=== PATIENT | male | born 1950 | race Hispanic/Latino ===

== ENCOUNTER 2022-01-15 07:06 | Outpatient (CLI) | payer MEDICARE ==
[2022-01-15 08:15] LABS: Hemoglobin 12.7 g/dL (13.5-17.5); Mean Corpuscular Hemoglobin 31.9 pg (27.0-33.0); Mean Corpuscular Volume 93.7 fl (81.2-95.1); Mean Platelet Volume 10.2 fl (7.4-10.4); Platelet Count 166 10x3/uL (150-450); RBC Distribution Width 13.6 % (11.5-14.5); Red Blood Cell (RBC) Count 3.98 10x6/uL (4.32-5.72); White Blood Cell (WBC) Count 5.6 10x3/uL (3.5-10.5)
[2022-01-15 08:30] LABS: INR-International Normal Ratio 0.9; PTT 25.9 sec (22.0-33.0); Prothrombin Time 10.3 sec (9.5-12.1)
[2022-01-15 08:41] LABS: Anion Gap 10 mmol/L (10-20); BUN (Urea Nitrogen) 18 mg/dL (8.4-25.7); Calc. Creatinine Clearance 0 mL/min (70-130); Calcium 9.5 mg/dL (7.8-10.44); Carbon Dioxide 32 mmol/L (23-31); Chloride 105 mmol/L (98-107); Estimated GFR 77; Glucose 106 mg/dL (80-115); Potassium 4.7 mmol/L (3.5-5.1); Sodium 142 mmol/L (136-145)
== END 2022-01-15 07:07 | disposition home or self-care (01) ==
LOC: CSHLAB 07:06
PROVIDERS: ATTEND Orthopaedic Surgery
DX: Z01.812 Encounter for preprocedural laboratory examination (principal); Z20.822 Contact with and (suspected) exposure to COVID-19; M54.50 Low back pain, unspecified; M54.16 Radiculopathy, lumbar region
CPT/HCPCS: 80048; 85027; 85610; 85730; 87811

== ENCOUNTER 2022-01-19 05:53 | Inpatient (IN) | payer MEDICARE ==
[2022-01-19] MEDS ORDERED: Lidocaine 1% MPF 2 ML VIAL ONE (06:43)
[2022-01-19] MEDS ORDERED: Famotidine/PF 20 mg/2ml Vial ONE ×2 (06:43→07:28)
[2022-01-19] MEDS ORDERED: EPINEPHrine 1 MG/ML AMP ONE (06:55)
[2022-01-19] MEDS ORDERED: Bupivacaine 0.25% HCL 30 ML VIAL ONE (06:55)
[2022-01-19] MEDS ORDERED: Fentanyl 100 MCG/2 ML VIAL ONE ×3 (07:01→13:39)
[2022-01-19] MEDS ORDERED: PROPOFOL 20 ML ONE (07:01)
[2022-01-19] MEDS ORDERED: Lidocaine 1% PF 5 ML VIAL ONE (07:02)
[2022-01-19] MEDS ORDERED: Rocuronium Bromide 10 MG/ML (10ML VIAL) ONE (07:02)
[2022-01-19] MEDS ORDERED: CEFAZOLIN 2 GM VIAL ONE (07:18)
[2022-01-19] MEDS ORDERED: SUGAMMADEX SODIUM 200 MG/2 ML VIAL ONE (07:27)
[2022-01-19] MEDS ORDERED: Dexmedetomidine 200 MCG/2 ML VIAL ONE (07:27)
[2022-01-19] MEDS ORDERED: ePHEDrine Sulfate 50 MG/10 ML VIAL ONE (08:38)
[2022-01-19] MEDS ORDERED: Ondansetron PF 4 MG/2 ML Vial ONE (11:51)
[2022-01-19] MEDS ORDERED: Ketorolac Tromethamine 30 MG/ML VIAL ONE (12:44)
[2022-01-19] MEDS ORDERED: Acetaminophen 325 MG TAB PO PRN (12:59)
[2022-01-19] MEDS ORDERED: Communication Order-Pharmacy FS SCH (13:00)
[2022-01-19] MEDS ORDERED: CEFAZOLIN 1 GM VIAL ONE (13:20)
[2022-01-19] MEDS: Morphine 4 MG/ML VIAL SLOW IVP PRN ×2 (15:51→20:20)
[2022-01-19] MEDS: Cholecalciferol 1,000 UNITS (25 MCG) TAB PO SCH (20:09)
[2022-01-19] MEDS: Atorvastatin Calcium 20 MG TAB PO SCH (20:24)
[2022-01-19] MEDS: metFORMIN 500 MG TAB PO SCH (20:24)
[2022-01-19] MEDS: Pregabalin 50 MG CAP PO SCH (20:24)
[2022-01-19] MEDS: Aspirin 81 mg Enteric Coated Tablet PO SCH (20:25)
[2022-01-19] MEDS: Lisinopril 20 MG TAB PO SCH (20:25)
[2022-01-19] MEDS: tiZANidine HCl 4 MG TAB PO SCH (20:25)
[2022-01-19 21:12] VITALS: BMI 26.7
[2022-01-19] MEDS: HYDROcodone/Acetaminophen 10/325 mg Tablet PO PRN (23:46)
[2022-01-20] MEDS: Morphine 4 MG/ML VIAL SLOW IVP PRN (04:01)
[2022-01-20] MEDS: HYDROcodone/Acetaminophen 10/325 mg Tablet PO PRN ×3 (08:23→21:09)
[2022-01-20] MEDS: Pregabalin 50 MG CAP PO SCH ×2 (08:24→21:06)
[2022-01-20] MEDS: Fish Oil 1,000 MG CAP PO SCH (08:24)
[2022-01-20] MEDS: Ascorbic Acid 500 mg Chewable Tablet PO SCH (08:25)
[2022-01-20] MEDS: Zinc Gluconate 50 MG TAB PO SCH (08:25)
[2022-01-20] MEDS: Lisinopril 20 MG TAB PO SCH ×2 (08:25→21:11)
[2022-01-20] MEDS: Cyanocobalamin (Vitamin B-12) 1,000 MCG TAB PO SCH (08:25)
[2022-01-20] MEDS: Folic Acid 1 MG TAB PO SCH (08:25)
[2022-01-20] MEDS: Aspirin 81 mg Enteric Coated Tablet PO SCH ×2 (08:26→21:06)
[2022-01-20] MEDS ORDERED: MILK THISTLE 500 MG PO SCH (09:00)
[2022-01-20] MEDS ORDERED: Aspirin 81 mg Enteric Coated Tablet PO SCH (09:00)
[2022-01-20] MEDS ORDERED: Sodium Chloride 0.9% 50 ML ONE (14:13)
[2022-01-20] MEDS: tiZANidine HCl 4 MG TAB PO SCH (21:05)
[2022-01-20] MEDS: metFORMIN 500 MG TAB PO SCH (21:06)
[2022-01-20] MEDS: Atorvastatin Calcium 20 MG TAB PO SCH (21:06)
[2022-01-21] MEDS ORDERED: Sodium Chloride 0.9% 500 ML IVPB SCH (00:30)
[2022-01-21] MEDS: Zinc Gluconate 50 MG TAB PO SCH (09:06)
[2022-01-21] MEDS: Pregabalin 50 MG CAP PO SCH ×2 (09:06→21:15)
[2022-01-21] MEDS: Aspirin 81 mg Enteric Coated Tablet PO SCH ×2 (09:07→21:16)
[2022-01-21] MEDS: HYDROcodone/Acetaminophen 10/325 mg Tablet PO PRN ×3 (09:07→17:24)
[2022-01-21] MEDS: Fish Oil 1,000 MG CAP PO SCH (09:07)
[2022-01-21] MEDS: Folic Acid 1 MG TAB PO SCH (09:07)
[2022-01-21] MEDS: Cyanocobalamin (Vitamin B-12) 1,000 MCG TAB PO SCH (09:07)
[2022-01-21] MEDS: Ascorbic Acid 500 mg Chewable Tablet PO SCH (09:07)
[2022-01-21] MEDS: Lisinopril 20 MG TAB PO SCH ×2 (09:08→21:16)
[2022-01-21] MEDS: Cholecalciferol 1,000 UNITS (25 MCG) TAB PO SCH (17:23)
[2022-01-21] MEDS: Atorvastatin Calcium 20 MG TAB PO SCH (21:14)
[2022-01-21] MEDS: tiZANidine HCl 4 MG TAB PO SCH (21:14)
[2022-01-21] MEDS: metFORMIN 500 MG TAB PO SCH (21:15)
[2022-01-22] MEDS: HYDROcodone/Acetaminophen 10/325 mg Tablet PO PRN ×2 (03:02→09:03)
[2022-01-22] MEDS ORDERED: Zinc Gluconate 50 MG TAB ONE (08:58)
[2022-01-22] MEDS: Zinc Gluconate 50 MG TAB PO SCH (09:03)
[2022-01-22] MEDS: Fish Oil 1,000 MG CAP PO SCH (09:05)
[2022-01-22] MEDS: Cyanocobalamin (Vitamin B-12) 1,000 MCG TAB PO SCH (09:05)
[2022-01-22] MEDS: Folic Acid 1 MG TAB PO SCH (09:05)
[2022-01-22] MEDS: Aspirin 81 mg Enteric Coated Tablet PO SCH (09:06)
[2022-01-22] MEDS: Pregabalin 50 MG CAP PO SCH (09:06)
[2022-01-22] MEDS: Ascorbic Acid 500 mg Chewable Tablet PO SCH (09:06)
[2022-01-22] MEDS: Lisinopril 20 MG TAB PO SCH (09:07)
[2022-01-22 13:16] VITALS: BP 148/69; TEMP 98
== END 2022-01-22 13:20 | DRG 517 ==
LOC: CSHSDC 05:53 → INTOOBSV 14:49 → CSHTELE 14:49 → OBSVTOIN 01-22 08:46
PROVIDERS: ADMIT Orthopaedic Surgery; ATTEND Orthopaedic Surgery
PROC: 01NB0ZZ Release Lumbar Nerve, Open Approach (ICD-10-PCS; principal; 2022-01-22)
DX: M48.061 Spinal stenosis, lumbar region without neurogenic claudication (principal); M54.16 Radiculopathy, lumbar region
CPT/HCPCS: 36416; 72110; 94760; 96374; 96375; 96376; C1889; G0378; J0171; J0690; J1885; J2270; J2405; J2704; J3010; J7030; S0020; S0028